=== PATIENT | female | born 1940 | race Asian ===

== ENCOUNTER → 2025-02-24 | Outpatient (CLI) | payer MEDICARE, SELFPAY ==
--- NOTE | 2025-02-24 | XR_ITS ---
EXAMINATION: Lumbar spine 3 views TECHNIQUE: AP lateral, lateral lower lumbar spine 3 views Date and time: February 24, 2025, 1133 hours INDICATIONS: Lower back pain radiating to the left hip beginning 1 year ago FINDINGS: Severe osteopenia Lumbar levoscoliosis 20 degrees No acute lumbar fracture Moderate lumbar spondylosis Minimal anterolisthesis L5 on S1 Mild diffuse lumbar disc narrowing IMPRESSION: Severe osteopenia Lumbar levoscoliosis 20 degrees Minimal anterolisthesis L5 on S1 Mild diffuse lumbar disc narrowing
--- NOTE | 2025-02-24 | XR_ITS ---
Examination: Left hip AP, lateral, AP pelvis 3 views Technique: Hip AP lateral, AP pelvis, 3 views Exam date and time: February 24, 2025, 11:20 a.m. INDICATIONS: Left hip pain 1 year patient fell 3 years ago. FINDINGS: Severe osteopenia No acute hip or pelvic fracture No hip dislocation Moderate narrowing hip joints IMPRESSION: Severe osteopenia Moderate bilateral hip osteoarthritis.
== END | disposition home or self-care (01) ==
LOC: CDIM 10:50
PROVIDERS: PCP Internal Medicine; Referring Provider Internal Medicine; Visit Provider Internal Medicine
DX: M85.88 Other specified disorders of bone density and structure, other site (principal); M41.86 Other forms of scoliosis, lumbar region; M48.061 Spinal stenosis, lumbar region without neurogenic claudication; M16.0 Bilateral primary osteoarthritis of hip
CPT/HCPCS: 72100; 73502